=== PATIENT | male | born 1965 | race Hispanic/Latino ===

== ENCOUNTER 2022-06-11 13:47 | Emergency (ER) | payer BC, OTHER ==
[~2022-06-11] VITALS: Ht 177.8 cm; Wt 85.7 kg
[2022-06-11] MEDS ORDERED: ORPHENADRINE CITRATE 30 MG/ML ML IM ONE (16:00)
[2022-06-11] MEDS ORDERED: KETOROLAC 30MG VIAL (30MG/ML) IM ONE (16:00)
[2022-06-11] MEDS ORDERED: NAPR375T6 PO (17:23)
[2022-06-11] MEDS ORDERED: CYCL5TAB PO (17:23)
[2022-06-11] MEDS ORDERED: PRED5TAB PO (17:23)
[2022-06-11 18:01] VITALS: BP 138/73
== END 2022-06-11 18:01 | disposition home or self-care (01) ==
LOC: EDH 13:47
DX: M54.50 Low back pain, unspecified (principal); M25.561 Pain in right knee; M25.562 Pain in left knee; E11.9 Type 2 diabetes mellitus without complications; I10 Essential (primary) hypertension; W19.XXXA Unspecified fall, initial encounter; Y93.01 Activity, walking, marching and hiking; Y92.89 Other specified places as the place of occurrence of the external cause; Y99.8 Other external cause status
CPT/HCPCS: 99284; 72100; 96372 ×2; J1885; J2360